=== PATIENT | male | born 1955 | race Caucasian/White ===

== ENCOUNTER 2018-02-05 09:51 | Day surgery (SDC) | payer BC ==
[~2018-02-05] VITALS: Ht 185.4 cm; Wt 86.1 kg
[2018-02-05] VITALS (10 sets, daily range): BP systolic 106–140; BP diastolic 60–82; PULSE 82–104; RESP 18; TEMP 98.5–99.2; O2SAT 94–99
[~2018-02-05 09:51] MED LIST: ASPI81TA11 PO; ATOR40TA PO; METO100T9 PO; PERC7.5T13 PO; PLAV75TA PO; RAPA8CAP PO
[2018-02-05] MEDS ORDERED: APIX5TAB PO (10:24)
[2018-02-05] MEDS ORDERED: PERC7.5T13 PO (10:24)
[2018-02-05] MEDS ORDERED: METO-393 PO (10:24)
[2018-02-05] MEDS ORDERED: ATOR40TA16 PO (10:24)
[2018-02-05] MEDS ORDERED: RAPA8CAP PO (10:24)
[2018-02-05] MEDS ORDERED: HEPARIN SODIUM - IV 10,000 UNITS/10 ML VIAL ONE ×2 (10:44→10:45)
[2018-02-05] MEDS ORDERED: HEPARIN-D5W 25,000 U/250 ML 250 ML ONE (10:44)
[2018-02-05] MEDS ORDERED: PROTAMINE SULFATE 50 MG/5 ML VIAL ONE (10:44)
[2018-02-05] MEDS ORDERED: MIDAZOLAM HCL 2 MG/2 ML VIAL ONE (10:44)
[2018-02-05] MEDS ORDERED: METOPROLOL TARTRATE 25 MG TAB PO PRN (10:45)
[2018-02-05] MEDS ORDERED: LORazepam 1 MG TAB SL SCH (10:45)
[2018-02-05] MEDS ORDERED: CHLORHEXIDINE GLUCONATE 2 % 1 PACK (2 CLOTHS) TOPICAL PRN (10:45)
[2018-02-05] MEDS ORDERED: LACTATED RINGER'S 1000 ML IV PRN (10:45)
[2018-02-05] MEDS ORDERED: SODIUM CHLOR 0.9% 250 ML INJ 250 ML ONE (10:45)
[2018-02-05] MEDS ORDERED: SODIUM CHLORID 0.9% 500 ML IV PRN (10:45)
[2018-02-05] MEDS ORDERED: POVIDONE IODINE 5% (ANTISEPSIS KIT) 4 APPLICATIONS EACH NARE PRN (10:45)
[2018-02-05] MEDS ORDERED: HEPARIN-NS/PF FLUSH BAG 2,000 ML IV FLUSH ONE (10:52)
[2018-02-05] MEDS ORDERED: LEVOFLOXACIN 500 MG PREMIX INJ 100 ML IV ONE (10:53)
[2018-02-05] MEDS ORDERED: LIDOCAINE HCL 1% PF 30 ML VIAL ONE (10:53)
[2018-02-05] MEDS ORDERED: SODIUM CHLORID 0.9% 500 ML INJ 500 ML IV SCH (11:00)
[2018-02-05 11:06] LABS: AUTOMATED NEUTROPHIL # 3.8 TH/MM3 (1.8-7.7); BASOPHIL % 0.5 % (0.0-2.0); EOSINOPHIL # 0.2 TH/MM3 (0-0.4); EOSINOPHIL % 2.1 % (0.0-4.0); HEMATOCRIT 37.7 % (39.0-51.0); HEMOGLOBIN 12.8 GM/DL (13.0-17.0); LYMPH % 34.8 % (9.0-44.0); LYMPHOCYTE # 2.5 TH/MM3 (1.0-4.8); MEAN CELL VOLUME 89.7 FL (80.0-100.0); MEAN CORPUSCULAR HEMOGLOBIN 30.5 PG (27.0-34.0); MEAN PLATELET VOLUME 9.7 FL (7.0-11.0); MONO % 10.4 % (0.0-8.0); MONOCYTE # 0.8 TH/MM3 (0-0.9); NEUT % 52.2 % (16.0-70.0); PLATELET COUNT 158 TH/MM3 (150-450); RED BLOOD COUNT 4.21 MIL/MM3 (4.50-5.90); RED CELL DISTRIBUTION WIDTH 13.4 % (11.6-17.2); WHITE BLOOD COUNT 7.3 TH/MM3 (4.0-11.0)
[2018-02-05 11:14] LABS: INTERNATIONAL NORMALIZED RATIO 1.1 RATIO; PROTHROMBIN TIME - PATIENT 10.9 SEC (9.8-11.6)
[2018-02-05 11:24] LABS: BICARBONATE 26.5 MEQ/L (21.0-32.0); CALCIUM 8.9 MG/DL (8.5-10.1); CREATININE 1.21 MG/DL (0.60-1.30)
--- NOTE | 2018-02-05 11:54 | EKG ---
Date Performed: 02/05/2018 Time Performed: 10:23:00 PTAGE: 62 years EKG: Atrial fibrillation with PVC(s). Possible inferior infarct - age undetermined Abnormal ECG Compared to prior electrocardiogram, atrial fibrillation is now present . PREVIOUS TRACING : 06/14/2016 10.00 DOCTOR: Giovanny Murphy Interpretating Date/Time 02/05/2018 11:52:52
[2018-02-05] MEDS ORDERED: PHENYLEPHRINE HCL 10 MG/ML VIAL IV ONE (12:00)
[2018-02-05] MEDS ORDERED: ROCURONIUM INJ 50 MG/5 ML SYRINGE IV PUSH ONE (12:00)
[2018-02-05] MEDS ORDERED: ONDANSETRON HCL 4 MG/2 ML VIAL IV ONE (12:00)
[2018-02-05] MEDS ORDERED: ePHEDrine/NS 25 MG/5 ML SYRINGE IV ONE (12:00)
[2018-02-05] MEDS ORDERED: PHENYLEPH/NS 1000 MCG/10 ML SYR IV ONE (12:00)
[2018-02-05] MEDS ORDERED: LIDOCAINE HCL 1% PF 5 ML SYRINGE OTHER ONE (12:00)
[2018-02-05] MEDS ORDERED: PROPOFOL 200 MG/20 ML AMP IV ONE (12:00)
[2018-02-05] MEDS ORDERED: GLYCOPYRROLATE 1 MG/5 ML SYRINGE IV PUSH ONE (12:00)
[2018-02-05] MEDS ORDERED: DEXAMETHASONE SOD PHOS 4 MG/ML VIAL IV ONE (12:00)
[2018-02-05] MEDS ORDERED: NEOSTIGMINE 5 MG/5 ML SYRINGE IV PUSH ONE (12:00)
[2018-02-05] MEDS ORDERED: DO NOT ADM ANY ANTICOAGULANT DRUGS PRN (13:06)
[2018-02-05] MEDS ORDERED: SODIUM CHLOR 0.9% 250 ML INJ 250 ML IV PRN (13:15)
[2018-02-05] MEDS ORDERED: ONDANSETRON HCL 4 MG/2 ML VIAL IV PUSH PRN (13:15)
[2018-02-05] MEDS ORDERED: ATROPINE SULFATE 1 MG/ML VIAL IV PUSH PRN (13:15)
[2018-02-05] MEDS ORDERED: LIDOCAINE HCL 1% 50 ML VIAL INFIL PRN (13:15)
[2018-02-05] MEDS ORDERED: LORazepam 2 MG/ML VIAL IV PUSH PRN (13:15)
[2018-02-05] MEDS ORDERED: oxyCODONE/ACETAMINOPHEN 5 MG/325 MG TAB PO PRN ×2 (13:15)
--- NOTE | 2018-02-05 13:16 | PD.CARD ---
Atrial Fibrillation Ablation PROCEDURE DATE: February 05, 2018 PROCEDURES PERFORMED: 1. Electrophysiology study on Isuprel infusion 2. CS cannulation 3. 3-D mapping 4. Transseptal approach 5. Right and left heart catheterization 6. Intracardiac echo 7. Radiofrequency ablation of atrial fibrillation 8. Pulmonary vein isolation 9. Posterior wall ablation 10. Mitral valve isolation 11. Mitral line creation 12. Left atrial tachycardia ablation 13. Left atrial appendage isolation 14. Anterior wall ablation INDICATIONS FOR THE PROCEDURE Mr. Mcdaniel is a 62-year-old male with atrial fibrillation, very symptomatic, on anticoagulation referred for electrophysiology study and ablation. The risks, the nature and the benefits of the procedure were clearly stated to him. The risks include pneumothorax, cardiac perforation, stroke, need for open heart surgery and even . The patient understood and agreed to proceed. DESCRIPTION OF THE PROCEDURE IN DETAIL As written informed consent was obtained prior to esophageal echocardiogram, the patient was kept on the table where he was prepped and draped in the usual sterile fashion. Conscious sedation was initiated and maintained throughout the procedure by the anesthesiologist. Once sedation was verified, the right and left inguinal areas were anesthetized with 2% Xylocaine. Using modified Seldinger technique, the left femoral vein was cannulated on three occasions, three guidewires were advanced. Over the wire a 6, 7 and a 10-Tajik Hemaquet were advanced. Then the left femoral artery was cannulated on one occasion, one guidewire was advanced. Over the wire a 4-Tajik Hemaquet was advanced. Then the right femoral vein was cannulated on one occasion, one guidewire was advanced. Over the wire a 8-Tajik Hemaquet was advanced. Then under fluoroscopic guidance through the 6 and 7-Tajik Hemaquet, two 5-Tajik Dale curved quadripolar electrophysiology catheters were advanced and placed around the His as well as coronary sinus. Basic interval was measured. The patient was in atrial fibrillation. Through the 10-Tajik Hemaquet, a Cordis Joaquin AcuNav intracardiac echo catheter was advanced and placed at the right atrium. Multiple view was obtained. There was no pericardial effusion, pulmonary vein was seen, atrial septal was visualized. Then the 8-Tajik Hemaquet in the right femoral vein was exchanged for Agilis transseptal sheath that was placed all the way to the superior vena cava. Through the sheath a Rajeev needle was advanced, then the sheath, the dilator and the needle were progressed until foci engaged. Once engaged, the needle was advanced. RF was delivered for 2 seconds. I was able to cross into the left atrium. Once the needle crossed, the dilator was advanced. Once the dilator crossed, the sheath was advanced. Once the sheath crossed, the dilator and the needle were removed. At this point I did flood the system and fluid movement was seen in the left atrium the indicates the sheath is in good position. The patient already received 10,000 units of heparin. The goal is to keep an ACT around 350 during ablation. Then through the sheath a St. Surjit 20 pulse circumferential catheter was advanced. Using Peers App endocardial solution mapping system, a two-dimensional configuration of the left atrium was obtained. Points were taken at the left superior and inferior veins, right superior and inferior veins, mitral valve, and appendages. Then through the sheath a St. Surjit TactiCath 65cm 3.5mm irrigated tipped mapping and radiofrequency ablation catheter was advanced. Esophageal probe was placed temperature monitoring during ablation. When it increased to 0.5 degrees Celsius above baseline, I moved to a different area of the atrium. First I did isolate the left superior and inferior vein. I did make a [place] around the common left veins. Posterior was ablated. A mitral line was isolated, then the mitral valve was isolated. At that point the patient was in left atrial tachycardia. Left atrial appendage was isolated. patient went into sinus rhythm. Then the right superior and inferior veins were isolated. I did remap the atrium. At that point I did advance the circumferential catheter again into the vein. There was no signal into the vein, pacing from the vein showed no conduction to the atrium. Isuprel infusion was initiated at 20 mcg for over 10 minutes. No tachyarrhythmia was induced, post Isuprel no tachyarrhythmia was induced. At that point the procedure was complete. All catheters were removed , atrial septal sheath was exchanged for 9-Tajik Hemaquet, intracardiac echo showed no pericardial effusion. There is still good flow in the pulmonary vein. The patient is going to be transferred to the recovery room. No incident report. The patient tolerated the procedure. Blood loss was minimal. FINDINGS 1. Electrocardiogram: At baseline the patient was in atrial fibrillation, post procedure the patient was in sinus rhythm. 2. Basic interval: Base cycle length was around 430. Post ablation she was around 990 milliseconds. AH at 122 and HV at 76 milliseconds. 3. Tachyarrhythmia: Atrial fibrillation was mapped and ablated. Atrial tachycardia was ablated. The ablation was successful. CONCLUSION Successful electrophysiology study, mapping, radiofrequency ablation of atrial fibrillation, left atrial tachycardia, pulmonary vein isolation, posterior ablation, mitral valve isolation, mitral line creation, left atrial appendage isolation, left atrial tachycardia. COMMENTS AND RECOMMENDATIONS The patient is going to be transferred to the telemetry unit. Will be observed and when stable can be discharged home. Julian Ordonez MD February 05, 2018 13:16
--- NOTE | 2018-02-05 13:27 | CATHPROC ---
Patient Name: BENITO LIMON Study #: [id number] Initial MD: Julian Ordonez Date of : 1955 Study Date: 02/05/2018 Cardiac Catheterization Report 02/05/2018 1:27:31 PM Financial #: [id number] 1 of 10 Patient Name: BENITO LIMON Study #: [id number] Initial MD: Julian Ordonez Date of : 1955 Study Date: 02/05/2018 Entire Case Report Patient Information Patient Name BENITO LIMON Date of 1955 Age 62 years Financial # [id number] Gender M AlternateID Lab Number 2 Room Number DC08 Height (in) 73.0 Height (cm) 185.4 BSA 2.11 Weight (lbs) 191.4 Weight (kg) 87.0 Patient Address/Phone Number Home Address [facility] Home Phone Number [address] [facility] [phone] Study Information Study Number Admission Scheduled Start Study Start [id number] Feb 05 2018 9:51AM 02/05/2018 Feb 05 2018 10:27AM [place] [facility] Electrophysiology Study Admit Source Facility Department Other [facility] Chief Physician and Clinical Staff Initial Julian Beaulieu Wet End Helper Jane Rivera,RT(R) TECH2 Wet End Helper Adrianna Krause RCIS TECH2 Other Anesthesia, JAWBONE BREAKER Recorder Jenna Torres RN Scrub Domingo Bronson,RT(R) Procedures Performed Procedure Location (Site) Vessel Name Ablation Procedure ICE CATHETER INSERT RA Atruim RF Ablation LT. ATRIUM LT. ATRIUM 02/05/2018 1:27:31 PM Financial #: [id number] 2 of 10 Patient Name: BENITO LIMON Study #: [id number] Initial MD: Julian Ordonez Date of : 1955 Study Date: 02/05/2018 Equipment Time Apprentice Stylist Description Size Mfg Part Number Used/Scraped NEEDLE, TRANSSEPTAL NRG 98 [id number] 11:06 [facility] Used C1 *[id number] [employer]/ EP [id number] 11:06 KIT, TRANSDUCER / AFIB Used PACER *[id number]- CATHETER, TACTICATH ABLAT BUNDLE 11:06 [employer]UN[employer] Used 65 BUNDLE *[id number]- BUNDLE [id number] CATHETER, FR7 OPTIMA SPIRAL 11:06 [employer] FR7 *[id number]- Used BUNDLE BUNDLE [id number] 11:06 [employer] CATHETER, JSN, QUAD BUNDLE FR 5 *[id number]- Used BUNDLE [id number] 11:06 [employer] CATHETER, JSN, QUAD BUNDLE FR 5 *[id number]- Used BUNDLE [id number] SET, COOL POINT TUBING 11:06 [employer]UND[employer] *[id number]- Used BUNDLE BUNDLE SHEATH, FR8.5 STEERABLE SM 11:06 [employer]UN[employer] 71CM [id number] Used 71CM BUNDLE COVER, TRANSDUCER CABLE 612-113 11:06 [employer] Used ACUNAV *[id number] 11:06 CORDIS/PACER SHEATH, FR10 JUMANA 11CM FR 10 Used *[id number] 11:06 CORDIS/PACER SHEATH, FR9 JUMANA 11CM FR 9 [id number] Used [id number] 11:06 [employer] IND[employer]ES PACK, CCL CUSTOM * Used *[id number] 11:06 Absio PACER SARGENT, LIMB * 2530 *[id number] Used [id number] 11:06 [employer] MEDICAL SHEATH, FR4.5 PRELUDE 11CM FR 4.5 Used [id number] 11:06 NAMIC TUBING, HIGH PRESSURE 48" 48" Used *[id number] [id number] 11:06 NAMIC TUBING, HIGH PRESSURE 48" 48" Used *[id number] [id number] 11:06 [employer] BLANKET,WARM AIR CCL * Used *6596480 HV6713 11:06 [facility] MEDICAL ELECTRODE KIT, PERRY X SURFACE * Used *7085078 [id number] 11:06 [facility] MEDICAL SHEATH, EPS, FR6 FAST CATH FR 6 Used *[id number] 11:06 [employer] MEDICAL SHEATH, EPS, FR7 FAST CATH FR 7 [id number] Used 389033 11:06 [facility] MEDICAL SHEATH, EPS, FR8 FAST CATH FR 8 Used *[id number] CATHETER, ACUNAV FR10 ICE [id number] 11:49 DANY FR 10 Used (DANY) *[id number] [facility] PAD, ELECTROSURGICAL 11:06 * [id number] *[id number] Used SURGICAL GROUNDING (BLUE) 02/05/2018 1:27:31 PM Financial #: [id number] 3 of 10 Patient Name: BENITO LIMON Study #: [id number] Initial MD: Julian Ordonez Date of : 1955 Study Date: 02/05/2018 Insurance Information Insurance Payor Private Health Insurance Third Libertarian Third Libertarian Number BC NETWORK BLUE BCNWB History: Allergies Allergy Reaction Sulfa (Sulfonamide Antibiotics) HIVES History: Risk Factors Hypertension Dyslipidemia Yes Yes Labs Hgb (g/dl) Hct (%) RBC (MIL/MM3) WBC (l/cumm) Platelets (thousands) 11.60-17.00 35.00-51.00 4.00-5.90 4.00-11.00 150.00-450.00 12.8 37 4.2 7.3 158 Glucose (mg/dl) BUN (mg/dl) Creatinine (mg/dl) BUN:Creatinine (1:x) 74.00-106.00 7.00-18.00 0.50-1.30 10.00-20.00 95 12 1.2 10 Na (meq/l) K (meq/l) 136.00-145.00 3.50-5.10 142 3.7 INR (PTT:PT) 0.90-1.10 1.1 Medication Medication Total Dose (Bolus/Oral) Medication Total Dosage/Unit 1% XYLOCAINE 40 mL HEPARIN 96935 units PROTAMINE 40 mg 02/05/2018 1:27:31 PM Financial #: [id number] 4 of 10 Patient Name: BENITO LIMON Study #: [id number] Initial MD: Julian Ordonez Date of : 1955 Study Date: 02/05/2018 Medications (Bolus/Oral) Medication Time Given Dosage/Unit Administered By Reason 1% XYLOCAINE 02/05/2018 11:42:44 AM 20 mL Julian Ordonez 20 mL 1% XYLOCAINE given in lab by Julian Ordonez in Left Groin via Subcutaneous. 1% XYLOCAINE 02/05/2018 11:46:00 AM 20 mL Julian Ordonez 20 mL 1% XYLOCAINE given in lab by Julian Ordonez in Right Groin via Subcutaneous. HEPARIN 02/05/2018 11:51:06 AM 76076 units Anesthesia, JAWBONE BREAKER As per physicians v erbal order 73030 units HEPARIN given by Anesthesia, JAWBONE BREAKER via Peripheral IV. Ordered by Julian Ordonez. Reason: As per physicians verbal order. HEPARIN 02/05/2018 12:03:33 PM 3000 units Anesthesia, JAWBONE BREAKER 3000 units HEPARIN given by Anesthesia, JAWBONE BREAKER via Peripheral IV. Ordered by Julian Ordonez. HEPARIN 02/05/2018 12:16:20 PM 2000 units Anesthesia, JAWBONE BREAKER As per physicians ve rbal order 2000 units HEPARIN given in lab by Anesthesia, JAWBONE BREAKER via Peripheral IV. Ordered by Julian Ordonez. Reas on: As per physicians verbal order. PROTAMINE 02/05/2018 1:09:32 PM 40 mg Anesthesia, JAWBONE BREAKER As per physicians verb al order 40 mg PROTAMINE given in lab by Anesthesia, JAWBONE BREAKER via Peripheral IV. Ordered by Julian Ordonez. Reason: As per physicians verbal order. Medication (Drip) Medication Time Given Dosage/Unit Concentration/Unit Diluent (ml) Solution ISUPREL 02/05/2018 12:55:28 PM 20 mcg/min 1 mg 250 NaCl .9 20 mcg/min ISUPREL given in lab by Anesthesia, JAWBONE BREAKER via Peripheral IV. Pump/Drip Flow = 300 ml/hr usi ng NaCl .9 with a concentration of 1 mg in 250 ml. Ordered by Julian Ordonez. Reason: As per physicians verbal order. LEVAQUIN 02/05/2018 11:35:42 AM 100 mL/hr 500 100 NaCl .9 100 mL/hr LEVAQUIN given in lab by Anesthesia, JAWBONE BREAKER via Peripheral IV. Pump/Drip Flow = 0 ml/hr using NaCl .9 with a concentration of 500 in 100 ml. Ordered by Julian Ordonez. Reason: As per physicians verbal order. 02/05/2018 1:27:31 PM Financial #: [id number] 5 of 10 Patient Name: BENITO LIMON Study #: [id number] Initial MD: Julian Ordonez Date of : 1955 Study Date: 02/05/2018 Initial Case Assessment Cardiovascular HR Rhythm NIBP Chest Pain 107 af 149/87 0 Edema Present Skin color Skin None Normal Warm Dry Circulatory - Right Pulses Dorsalis Pedis 2 Scale (0,1,2,3,4,d) Circulatory - Left Pulses Dorsalis Pedis 2 Scale (0,1,2,3,4,d) Neurological State Oriented to time-place- Alert Moves all extremities person Respiration - General Respiration Rate SpO2 (%) (B/min) 18 100 02/05/2018 1:27:31 PM Financial #: [id number] 6 of 10 Patient Name: BENITO LIMON Study #: [id number] Initial MD: Julian Ordonez Date of : 1955 Study Date: 02/05/2018 Final Case Assessment Cardiovascular HR Rhythm NIBP Chest Pain 90 sr 123/71 0 Edema Present Skin color Skin None Normal Warm Dry Circulatory - Right Pulses Dorsalis Pedis 2 Scale (0,1,2,3,4,d) Circulatory - Left Pulses Dorsalis Pedis 2 Scale (0,1,2,3,4,d) Circulatory - Lower Extremities Color Lower Right Color Lower Left Normal Normal Neurological State Lethargic Moves all extremities Respiration - General Respiration Rate SpO2 (%) O2 (lpm) (B/min) 16 100 8 Chronological Log Time Study Chronological Log 10:44:25 Patient arrived via Bed. 10:44:26 Patient Name, D.O.B, / Armband Verified By R.N. 10:44:26 Consent signed by the physician and the patient and verified by the Division Chief staff. 10:44:27 Pre-op and post- op instructions given; patient acknowledges understanding of instructions. 10:44:27 Verbal Stimulation=2 Physical Stimulation=2 Airway=2 Respiration=2 TOTAL=8. (0=absent, 1=li mited, 2=present) 10:44:28 Anesthesia at bedside. Assumes care of patient. 10:44:30 Patient has been NPO for More than 6Hrs. 10:44:30 Skin Breakdown- 10:44:31 Patient Warmer Placed on the Table. 02/05/2018 1:27:31 PM Financial #: [id number] 7 of 10 Patient Name: BENITO LIMON Study #: [id number] Initial MD: Julian Ordonez Date of : 1955 Study Date: 02/05/2018 10:44:31 Disposable Defibrillator Pads Placed On Patient. 10:44:32 Mike Prominences Protected 10:44:35 A # 20 IV was noted in the Forearm (right). Grade = 0 0.9ns kvo 10:44:35 A # 20 IV was noted in the Forearm (left). Grade = 0 0.9ns kvo 10:44:36 History and physical on the chart or being dictated. Assessment: Initial Case, TU=980 BPM, Rhythm=af, EJKX=153/87 mmhg, Chest Pain=0, Edema=None, Co juan carlos=Normal, Skin = Warm, Dry Right Pulses: Henry Ped=2 11:02:00 Left Pulses: Henry Ped=2 Neurological: State=Alert, Ox3, DUNAWAY Respiration: Resp=18 B/min, GmU6=595 % 11:02:35 Table restraints applied according to hospital policy 11:15:04 Anethesiologist present for intubation. 14 Fr villanueva inserted w/o difficulty. Clear yellow u rine obtained. 11:20:37 Bilateral groins prepped with 2% chlorhexidine, and draped after a 3 minute waiting time. 11:32:09 MD paged 11:33:13 MD arrived. 100 mL/hr LEVAQUIN given in lab by Anesthesia, JAWBONE BREAKER via Peripheral IV. Pump/Drip Flow = 0 ml/hr using NaCl .9 with 11:35:42 a concentration of 500 in 100 ml. Ordered by Julian Ordonez. Reason: As per physicians verbal or shelly. Time Out. Correct patient, procedure, procedure equipment, site and side verified with physicia n present. Time 11:39:00 concurred by MD, individual staff and JAWBONE BREAKER. Time Out #2 - Consents verified, patient in correct position, all results are labled and displa yed, safety precautions 11:39:21 taken, antibiotics administered. Time out concurred by MD, individual staff and JAWBONE BREAKER in procedu re 11:39:34 Case Start 11:39:37 Db in progress. 11:42:04 Db complete 11:42:44 20 mL 1% XYLOCAINE given in lab by Julian Ordonez in Left Groin via Subcutaneous. 11:43:03 Vascular access was obtained in the Fem Vein (left). 11:43:13 Vascular access was obtained in the Fem Vein (left). 11:43:20 Vascular access was obtained in the Fem Vein (left). 11:43:20 Vascular access was obtained in the Fem Art (left). A SHEATH, FR4.5 PRELUDE 11CM FR 4.5 was advanced into the Fem Art (left) using the Percutaneous technique. 11:43:34 0.9ns pressure bag connected. 11:44:45 A SHEATH, EPS, FR6 FAST CATH FR 6 was advanced into the Fem Vein (left) using the Modified Seldinger technique. 11:44:53 A SHEATH, EPS, FR7 FAST CATH FR 7 was advanced into the Fem Vein (left) using the Modified Seldinger technique. 11:45:00 A SHEATH, FR10 JUMANA 11CM FR 10 was advanced into the Fem Vein (left) using the Modified S eldinger technique. 11:46:00 20 mL 1% XYLOCAINE given in lab by Julian Ordonez in Right Groin via Subcutaneous. 11:46:15 Vascular access was obtained in the Fem Vein (right). 11:46:20 A SHEATH, EPS, FR8 FAST CATH FR 8 was advanced into the Fem Vein (right) using the Percutan eous technique. A CATHETER, JSN, QUAD BUNDLE FR 5 was advanced vis Fem Vein (left) and placed in the HIS. Place ment was 11:48:34 visually confirmed under fluoroscopy. A CATHETER, JSN, QUAD BUNDLE FR 5 was advanced vis Fem Vein (left) and placed in the CS. Placem ent was visually 11:48:43 confirmed under fluoroscopy. 11:48:58 CATHETER, ACUNAV FR10 ICE (DANY) FR 10 Was Postioned. 02/05/2018 1:27:31 PM Financial #: [id number] Patient Name: BENITO LIMON Study #: [id number] Initial MD: Julian Ordonez Date of : 1955 Study Date: 02/05/2018 A SHEATH, FR8.5 STEERABLE SM 71CM BUNDLE 71CM was exchanged in the Fem Vein (right). This was n ecessary in 11:49:19 order for catheter support. 46912 units HEPARIN given by Anesthesia, JAWBONE BREAKER via Peripheral IV. Ordered by Julian Ordonez. Reas on: As per 11:51:06 physicians verbal order. 11:51:54 36.8 baseline esophageal probe temp. 11:52:07 [place] in 11:56:27 Activated Clotting Time Drawn 11:59:12 A eps was advanced to the right atrium and passed through the septal wall to the left atriu m. 11:59:16 [place] out A CATHETER, FR7 OPTIMA SPIRAL BUNDLE FR7 was advanced vis Fem Vein (right) and placed in the LA . Placement 12:00:00 was visually confirmed under fluoroscopy. 12:03:26 ACT (Normal Range 90-180) = 303 12:03:33 3000 units HEPARIN given by Anesthesia, JAWBONE BREAKER via Peripheral IV. Ordered by Julian Ordonez. 12:06:39 Mapping complete. Catheter out. A CATHETER, TACTICATH ABLAT 65 BUNDLE was advanced vis Fem Vein (right) and placed in the LA. P lacement was 12:07:00 visually confirmed under fluoroscopy. 12:07:10 RF Ablation of the LT. ATRIUM with a CATHETER, TACTICATH ABLAT 65 BUNDLE. 12:16:12 ACT (Normal Range 90-180) = 330 2000 units HEPARIN given in lab by Anesthesia, JAWBONE BREAKER via Peripheral IV. Ordered by Julian Ordonez . Reason: As per 12:16:20 physicians verbal order. 12:31:13 ACT (Normal Range 90-180) = 360 12:52:00 Ablation catheter was removed A CATHETER, FR7 OPTIMA SPIRAL BUNDLE FR7 was advanced vis Fem Vein (right) and placed in the LA . Placement 12:52:11 was visually confirmed under fluoroscopy. 12:52:22 EPS in progress. 20 mcg/min ISUPREL given in lab by Anesthesia, JAWBONE BREAKER via Peripheral IV. Pump/Drip Flow = 300 ml/ hr using NaCl .9 12:55:28 with a concentration of 1 mg in 250 ml. Ordered by Julian Ordonez. Reason: As per physicians cory bal order. 13:03:55 Isuprel off 13:04:13 All catheter(s) removed without difficulty. A SHEATH, FR9 JUMANA 11CM FR 9 was exchanged in the Fem Vein (right). This was necessary in ord er to minimize 13:04:53 site leakage. 13:05:58 Ablation procedure performed: AFIB. 13:06:05 EP Procedure was performed. 13:07:47 Sheath(s) left in place, secured, 0.9ns kvo connected and will be removed in Holding Area 13:08:21 PACU called. Spoke to Maritza 13:09:19 Bedside Report will be given. 40 mg PROTAMINE given in lab by Anesthesia, JAWBONE BREAKER via Peripheral IV. Ordered by Julian Ordonez. Lester ku: As per 13:09:32 physicians verbal order. 13:09:53 Sterile dressing applied to sites. 13:19:58 Activated Clotting Time Drawn 13:22:17 Case End 13:22:19 No case complications noted. 13:23:28 ACT (Normal Range 90-180) = 178 02/05/2018 1:27:31 PM Financial #: [id number] Patient Name: BENITO LIMON Study #: [id number] Initial MD: Julian Ordonez Date of : 1955 Study Date: 02/05/2018 13:23:56 Defibrillator and ground pads removed. Skin intact. Assessment: Final Case, HR=90 BPM, Rhythm=sr, DRIM=386/71 mmhg, Chest Pain=0, Edema=None, Mcqueeney r=Normal, Skin = Warm, Dry Right Pulses: Henry Ped=2 Left Pulses: Henry Ped=2 13:26:45 Lower Right Extremities: Color=Normal Lower Left Extremities: Color=Normal Neurological: State=Lethargic, DUNAWAY Respiration: Resp=16 B/min, OiU0=616 %, O2=8 lpm 13:30:00 Patient moved to [facility] End Study - Contrast Media Used In Study Contrast Total Opened (mL) Total Used (mL) Total Wasted (mL) Unspecified 0 0 0 End Study - Maximum Contrast Load Max Contrast Load (mL) 362.5 End Study - Radiation Exposure Fluoro Time (minutes) 3.8 End Study - Patient Disposition Complications Transferred To Interventional Outcome No Telemetry Bed successful 02/05/2018 1:27:31 PM Financial #: [id number]
[2018-02-05] MEDS ORDERED: *morphine SULFATE 4 MG/ML PERIprocedure ONLY ONE (14:49)
[2018-02-05] MEDS ORDERED: BACITRACIN OINT 0.9 GM PKT TOP ONE (15:00)
[2018-02-05] MEDS: ATORVASTATIN 40 MG TAB PO SCH ×2 (20:39→20:40)
[2018-02-05] MEDS: APIXABAN 5 MG TABLET PO SCH (20:39)
[2018-02-06] VITALS (10 sets, daily range): BP systolic 103–151; BP diastolic 57–90; PULSE 61–85; RESP 18; TEMP 97.8–98.9; O2SAT 93–97
[2018-02-06 07:01] LABS: INTERNATIONAL NORMALIZED RATIO 1.1 RATIO; PROTHROMBIN TIME - PATIENT 11.4 SEC (9.8-11.6)
--- NOTE | 2018-02-06 08:56 | EKG ---
Date Performed: 02/06/2018 Time Performed: 06:02:44 PTAGE: 62 years EKG: Sinus rhythm with 1st degree A-V block Abnormal ECG PREVIOUS TRACING : 02/05/2018 14.28 Since the previous tracing, no significant change noted DOCTOR: Carlton Ballard Interpretating Date/Time 02/06/2018 08:50:56
[2018-02-06] MEDS ORDERED: TAMSULOSIN HCL 0.4 MG CAP PO SCH (09:00)
[2018-02-06] MEDS ORDERED: METOPROLOL SUCCINATE 50 MG EXTENDED RELEASE TAB PO SCH ×2 (09:00)
--- NOTE | 2018-02-06 09:45 | HHI.PR ---
Subjective Remarks Feeling fine Objective Vital Signs Date Time Temp Pulse Resp B/P (MAP) Pulse Ox O2 Delivery O2 Flow Rate FiO2 02/06/18 08:27 97 Room Air 02/06/18 08:27 98.2 71 18 119/70 (86) 97 02/06/18 08:00 80 02/06/18 07:00 76 02/06/18 05:58 75 02/06/18 05:00 80 02/06/18 04:00 98.4 84 18 103/57 (72) 93 02/06/18 04:00 Room Air 02/06/18 04:00 78 02/06/18 03:00 76 02/06/18 02:00 80 02/06/18 01:00 84 02/06/18 00:00 85 02/06/18 00:00 98.9 79 18 110/60 (77) 95 02/06/18 00:00 Room Air 02/05/18 23:00 82 02/05/18 22:00 84 02/05/18 21:00 84 02/05/18 20:00 98.6 84 18 120/70 (87) 94 02/05/18 20:00 83 02/05/18 20:00 Room Air 02/05/18 19:00 90 18 122/82 (95) 98 02/05/18 19:00 88 02/05/18 18:30 92 18 120/73 (89) 97 02/05/18 18:00 98.5 93 18 106/60 (75) 96 02/05/18 17:00 98.5 88 18 117/70 (86) 96 02/05/18 16:42 98.5 87 18 110/69 (83) 96 02/05/18 16:30 99.1 85 14 111/66 (81) 95 Room Air 02/05/18 16:00 85 17 112/66 (81) 95 Room Air 02/05/18 15:30 84 14 116/67 (83) 98 Room Air 02/05/18 15:25 Room Air 02/05/18 15:15 82 14 117/69 (85) 100 Nasal Cannula 2 02/05/18 15:00 81 14 117/67 (84) 99 Nasal Cannula 2 02/05/18 14:45 81 14 118/70 (86) 98 Nasal Cannula 2 02/05/18 14:30 81 14 110/66 (81) 99 Nasal Cannula 2 02/05/18 14:15 80 14 114/68 (83) 100 Nasal Cannula 2 02/05/18 14:05 80 12 112/68 (83) 98 Nasal Cannula 2 02/05/18 14:00 80 12 112/69 (83) 99 Nasal Cannula 2 02/05/18 13:55 80 12 112/69 (83) 99 Nasal Cannula 2 02/05/18 13:50 82 12 112/67 (82) 99 Nasal Cannula 2 02/05/18 13:45 84 12 111/66 (81) 99 Nasal Cannula 2 02/05/18 13:37 98.0 87 12 113/65 (81) 100 Nasal Cannula 2 02/05/18 10:15 99.2 104 18 140/76 (97) 99 I/O 02/05/18 02/05/18 02/05/18 02/06/18 02/06/18 02/06/18 07:00 15:00 23:00 07:00 15:00 23:00 Intake Total 240 ml 300 ml Output Total 1300 ml 250 ml Balance -1300 ml -10 ml 300 ml Intake Oral 240 ml 300 ml IV Total 0 ml Output Urine Total 1300 ml 250 ml Bladder Scan Volume Amount 647 ml # Voids 1 # Bowel Movements 0 Result Diagram: 02/05/18 1010 02/05/18 1010 Imaging Alert, fully oriented Lungs: Ventilated Heart: S1, S2 regular, no gallop Abdomen: soft, no mass Ext: No edema Current Medications Medications (Trade) Dose Ordered Sig/[place] Route Start Time Stop Time Status Last Admin Sodium Chloride 500 ml @ 30 mls/hr [id number] IV 02/05/18 11:00 02/05/18 10:45 (Ativan) 1 mg STRATEGY ANALYST SL 02/05/18 10:45 02/08/18 10:44 Lactated Ringer's 1,000 ml @ 30 mls/hr Q24H PRN IV 02/05/18 10:45 02/08/18 10:44 Sodium Chloride 500 ml @ 30 mls/hr [id number] PRN IV 02/05/18 10:45 02/08/18 10:44 (Lopressor) 25 mg STRATEGY ANALYST PRN PO 02/05/18 10:45 02/08/18 10:44 (Betadine 5% Antisepsis Kit) 1 applic STRATEGY ANALYST PRN EACH NARE 02/05/18 10:45 02/08/18 10:44 (Chlorhexidine 2% Cloth) 3 pack STRATEGY ANALYST PRN TOPICAL 02/05/18 10:45 02/08/18 10:44 (Percocet 5-325 Mg) 1 tab Q4H PRN PO 02/05/18 13:15 (Percocet 5-325 Mg) 2 tab Q4H PRN PO 02/05/18 13:15 (Ativan Inj) 0.5 mg UNSCH PRN IV PUSH 02/05/18 13:15 02/06/18 13:14 (Atropine Inj) 0.5 mg UNSCH PRN IV PUSH 02/05/18 13:15 Sodium Chloride 250 ml @ 500 mls/hr ONCE PRN IV 02/05/18 13:15 02/06/18 13:14 (Zofran Inj) 4 mg Q4H PRN IV PUSH 02/05/18 13:15 (Xylocaine 1% Inj (50 ml)) 10 ml UNSCH PRN INFIL 02/05/18 13:15 02/06/18 13:14 (Eliquis) 5 mg BID PO 02/05/18 21:00 02/05/18 20:39 (Lipitor) 40 mg HS PO 02/05/18 21:00 (Flomax) 0.4 mg DAILY PO 02/06/18 09:00 ([facility] [place] [facility]) ALL NURSING DEPARTME... UNSCH PRN .XX 02/05/18 13:06 02/06/18 13:05 (Toprol Xl) 100 mg DAILY PO 02/06/18 09:00 Assessment and Plan Problem List: (1) Atrial fibrillation ICD Codes: I48.91 - Unspecified atrial fibrillation Plan: SP ablation In sinus rhythm. doing well can be DH follow up as previously scheduled (2) Palpitations ICD Codes: R00.2 - Palpitations Plan: No new episode reported Julian Ordonez MD February 06, 2018 09:45
[2018-02-06] MEDS: APIXABAN 5 MG TABLET PO SCH (09:49)
[2018-02-06] MEDS ORDERED: METO1TAB43 PO (09:49)
--- NOTE | 2018-02-06 10:29 | EKG ---
Date Performed: 02/05/2018 Time Performed: 14:28:42 PTAGE: 62 years EKG: Sinus rhythm WITH FIRST DEGREE AV BLOCK ABNORMAL ECG PREVIOUS TRACING : 02/05/2018 10.23 Low limb lead voltage. Patient is no longer in atrial fibri llation compared to the old tracing. DOCTOR: Carlotn Ballard Interpretating Date/Time 02/06/2018 10:28:02
== END 2018-02-06 10:54 | disposition home or self-care (01) ==
LOC: HDOC 09:51 → HDIC 09:51 → HCIS 16:50 → HDOC 02-06 10:54
PROVIDERS: ATTEND Internal Medicine Interventional Cardiology
DX: I48.0 Paroxysmal atrial fibrillation (principal); I47.2 Ventricular tachycardia; R00.2 Palpitations; I25.119 Atherosclerotic heart disease of native coronary artery with unspecified angina pectoris; E78.5 Hyperlipidemia, unspecified; I10 Essential (primary) hypertension; R06.00 Dyspnea, unspecified; R53.83 Other fatigue; F32.9 Major depressive disorder, single episode, unspecified; Z79.01 Long term (current) use of anticoagulants; Z82.49 Family history of ischemic heart disease and other diseases of the circulatory system
CPT/HCPCS: 00537; 80048; 85002; 85025; 85610; 85730; 86850; 86900; 86901; 93005; 93312; 93320; 93325; 93613; 93623; 93656; 93662; C1730; C1731; C1732; C1759; C1766; C2630; J1100; J1644; J1956; J2250; J2270; J2370; J2405; J2710; J2720; J3010; J7040; J7050